=== PATIENT | male | born 1955 | race Caucasian/White ===

== ENCOUNTER 2024-10-09 16:03 | Emergency (ER) | payer MEDICARE ==
[~2024-10-09] VITALS: Ht 175.3 cm; Wt 117.4 kg
[~2024-10-09 16:03] MED LIST: ADVIL 200MG TA200 MG PO; AMLODIPINE BESY10 MG PO; ASPIR LOW81 MG PO; CENTRUM1 TA1 PO; CEPHALEXIN500 M1 PO; CRESTOR20 MG PO; GLUCOSAMINE-CH1 EAC4 PO; HCTZ; MAVIK2 M1 PO; METOPROLOL SUC100 M1 PO; PIOGLITAZONE HC1 TA1 PO; SLOW-MAG 106 MG1 ECT PO; TARKA 1 MG-2401 TER PO
[2024-10-09] MEDS ORDERED: VANCOMYCIN IV ONE (17:00)
[2024-10-09] MEDS ORDERED: cefTRIAXone 1 G in Water For Injection,Sterile 10 ML IV ONE (17:00)
[2024-10-09] MEDS ORDERED: NS IV ONE (17:00)
[2024-10-09] MEDS ORDERED: DOXAZOSIN MESYLA1 M1 PO (17:05)
[2024-10-09] MEDS ORDERED: FLUOROURACIL5% TP (17:07)
[2024-10-09] MEDS ORDERED: HCTZ 25MG25 MG PO (17:08)
[2024-10-09] MEDS ORDERED: GLIMEPIRIDE4 MG PO (17:08)
[2024-10-09] MEDS ORDERED: NIZORAL CREAM15 GM TP (17:09)
[2024-10-09] MEDS ORDERED: LISINOPRIL40 MG PO (17:09)
[2024-10-09] MEDS ORDERED: PIOGLITAZONE HC15 MG PO (17:10)
[2024-10-09] MEDS ORDERED: METFOMIN HYDRO850 MG PO (17:10)
[2024-10-09] MEDS ORDERED: ROSUVASTATIN CA20 MG PO (17:11)
[2024-10-09 17:13] LABS: BASO # 0.04 K/mm3 (0.02-0.10); EOS % 0.6 % (0.0-4.0); HEMOGLOBIN 13.1 g/dL (13.5-18.0); LYMPH# 1.51 K/mm3 (1.50-4.00); MEAN CELL VOLUME 86 fl (78-100); MEAN CORPUSCULAR HEMOGLOBIN 29 pg (27-31); MEAN CORPUSCULAR HGB CONC 34 g/dL (33-37); MEAN PLATELET VOLUME 9.3 fl (7.4-10.4); MONO # 1.33 K/mm3 (0.20-0.80); PLATELET COUNT 302 K/mm3 (130-400); RED BLOOD COUNT 4.52 M/mm3 (4.20-5.60); WHITE BLOOD COUNT 16.1 K/mm3 (4.8-10.8)
[2024-10-09] MEDS ORDERED: CLEOCIN T TP (17:13)
[2024-10-09] MEDS ORDERED: GLUCOSAMINE CHONDROI PO (17:13)
[2024-10-09] MEDS ORDERED: OMEPRAZOLE PO (17:14)
[2024-10-09] MEDS ORDERED: VITAMIN C500 M6 PO (17:15)
[2024-10-09] MEDS ORDERED: Acetaminophen 325 MG TAB PO ONE (17:15)
[2024-10-09] MEDS ORDERED: ZINC50 M4 PO (17:16)
[2024-10-09] MEDS ORDERED: ERGOCALCIFEROL PO (17:18)
[2024-10-09 17:23] LABS: ALBUMIN 3.8 g/dL (3.4-4.8)
[2024-10-09 17:24] LABS: CALCIUM 9.2 mg/dL (8.3-10.5)
[2024-10-09 17:26] LABS: TOTAL PROTEIN 7.5 g/dL (6.2-8.1)
[2024-10-09 17:27] LABS: TOTAL BILIRUBIN 0.8 mg/dL (0.2-1.2)
[2024-10-09 21:09] VITALS: BP 144/80
== END 2024-10-09 21:09 | disposition short-term general hospital (02) ==
LOC: ED 16:03
PROVIDERS: Physician Assistant
DX: S91.101A Unspecified open wound of right great toe without damage to nail, initial encounter (principal); L03.031 Cellulitis of right toe; L02.611 Cutaneous abscess of right foot; E11.9 Type 2 diabetes mellitus without complications; Z79.84 Long term (current) use of oral hypoglycemic drugs; X58.XXXA Exposure to other specified factors, initial encounter
CPT/HCPCS: J0696; J3370; J7040